=== PATIENT | female | born 1945 | race Caucasian/White ===

== ENCOUNTER 2019-11-22 09:20 | Outpatient (CLI) | payer MEDICARE, MEDICAID, SELFPAY ==
[2019-11-22 09:40] VITALS: BP 130/82; PULSE 109; RESP 17; TEMP 36.5; O2SAT 96
--- NOTE | 2019-11-22 10:29 | DI.RAD_ITS ---
EXAM: XR PAIN CLINIC LUMBAR SP 2V CLINICAL HISTORY: Dx: Lumbar Spondylosis, LUMBAR MEDIAL BRANCH BLOCK TECHNIQUE: Fluoroscopy was provided for the referring physician for guidance with performing injecti on procedure. COMPARISON: No exams were available for comparison FINDINGS: Please see procedure note for details. Fluoro time: 58.2 seconds RADIATION DOSE DELIVERED:
[2019-11-22 10:32] VITALS: BP 151/86; PULSE 105; RESP 22; O2SAT 96
[2019-11-22] MEDS: Bupivacaine 0.5% Pres-Free 10 ML VIAL IJ (10:33)
[2019-11-22] MEDS: Omnipaque 240 MG/ML 50 ML BTL IJ (10:33)
--- NOTE | 2019-11-22 10:38 | PDOC.PAIN ---
Pain Clinic Procedure Note Procedure Note Procedure Note: Lumbar/Sacral Medial Branch Blocks Vanna Ashby has been [facility] for lumbar/sacral medial branch blocks. COMMENTS: Previously evaluated by Ms. Elam in our clinic. DX: Lumbosacral spondylosis without myelopathy Patient was interviewed and the medical record reviewed. There were no medical, pharmacologic, radiographic or other structural contraindications to attempting fluoroscopically guided local anesthetic lumbar/sacral medial branch blocks. Risks and expected side effects as well as potential benefit of the procedure were reviewed and voiced concerns addressed. The printed consent form was signed and witnessed. Standard time-out procedure was performed. Patient was placed in the prone position on the fluoroscopy table and automated blood pressure cuff and pulse oximeter applied. The skin entry points for approaching the anatomic target points of the segmental medial branches of bilateral L3-L5DR were identified with anfluoroscopy and marked. Following thorough Chlorhexadine preparation of the skin and draping and 1% lidocaine infiltration of the skin entry points and subcutaneous tissues, a 22 gauge spinal needle was placed under fluoroscopic guidance down on to the target point for each respective segmental medial branch.Position was confirmed in A/P, oblique and lateral views with 0.25ml of omnipaque 240. At this point 0.5ml of 0.5% Bupivacaine was injected at each segmental nerve. The needles were removed without difficulty. Vital signs were stable throughout the procedure and were as recorded in the docflowsheet by the nursing staff. Follow up plans and appointments were discussed and was instructed to keep careful note of how the usual pain was modified by these injections. Specifically was asked to keep a pain diary for the next 24 hours using a numeric pain scale of 0-10 and report these results at the follow-up visit. Post procedure instruction was given as documented in the nursing documentation and having met discharge criteria. Patient was discharged from the [facility]. Based on the medial branches blocked today, if the patient has adequate relief and we are able to proceed to radiofrequency ablation, the treatment should result in the denervation of the bilateral L4-L5 and L5-S1 FACET JOINTS. We would expect to denervate a total of 4 facets during the radiofrequency ablation. COMMENTS: She will call back with her 1-4 hours post-procedure pain levels. Geoffrey Davalos DO, MPH [employer] [facility] [employer] [facility] - Pain Medicine CC: Estephanie Stern
== END 2019-11-22 09:40 ==
PROVIDERS: PCP Nurse Practitioner Family; Visit Provider Preventive Medicine Occupational Medicine
DX: M47.817 Spondylosis without myelopathy or radiculopathy, lumbosacral region (principal)
CPT/HCPCS: 64493; 64494; 72100; Q9967

== ENCOUNTER 2019-11-29 07:45 | Outpatient (CLI) | payer MEDICARE, MEDICAID, SELFPAY ==
--- NOTE | 2019-11-29 06:00 | DI.RAD_ITS ---
EXAM: XR PAIN CLINIC LUMBAR SP 2V CLINICAL HISTORY: Dx: Lumbar Spondylosis TECHNIQUE: 2D and realtime digital imaging was performed. Fluoroscopy was provided in the OR COMPARISON: No exams were available for comparison FINDINGS: C-arm fluoroscopy was utilized by Dr. Davalos during lumbar facet or transforaminal injections. Hard co py show needle placement and injections bilaterally at what appears to be 4 5 and L5-S1 levels. Fluoro time, 65.5 seconds IMPRESSION: RADIATION DOSE DELIVERED: Total DLP
[2019-11-29 07:55] VITALS: BP 125/81; PULSE 90; RESP 16; TEMP 36.9; O2SAT 96
[2019-11-29] MEDS: Lidocaine 2% Pres-Free 5 ML VIAL IJ (08:43)
[2019-11-29] MEDS: Omnipaque 240 MG/ML 50 ML BTL IJ (08:44)
--- NOTE | 2019-11-29 08:47 | PDOC.PAIN ---
Pain Clinic Procedure Note Procedure Note Procedure Note: Lumbar/Sacral Medial Branch Blocks Vanna Ashby has been referred to the [facility] for lumbar/sacral medial branch blocks. COMMENTS: She did very well with LMBB #1 DX: Lumbosacral spondylosis without myelopathy Patient was interviewed and the medical record reviewed. There were no medical, pharmacologic, radiographic or other structural contraindications to attempting fluoroscopically guided local anesthetic lumbar/sacral medial branch blocks. Risks and expected side effects as well as potential benefit of the procedure were reviewed and voiced concerns addressed. The printed consent form was signed and witnessed. Standard time-out procedure was performed. Patient was placed in the prone position on the fluoroscopy table and automated blood pressure cuff and pulse oximeter applied. The skin entry points for approaching the anatomic target points of the segmental medial branches of bilateral L3-L5DR were identified with fluoroscopy and marked. Following thorough Chlorhexadine preparation of the skin and draping and 1% lidocaine infiltration of the skin entry points and subcutaneous tissues, a 22 gauge 5 spinal needle was placed under fluoroscopic guidance down on to the target point for each respective segmental medial branch.Position was confirmed in A/P, oblique and lateral views with 0.25ml of omnipaque 240. At this point I injected 0.5 cc of 2% Lidocaine at each segmental sensory nerve. Vital signs were stable throughout the procedure and were as recorded in the docflowsheet by the nursing staff. Follow up plans and appointments were discussed and was instructed to keep careful note of how the usual pain was modified by these injections. Specifically was asked to keep a pain diary for the next 24 hours using a numeric pain scale of 0-10 and report these results at the follow-up visit. Post procedure instruction was given as documented in the nursing documentation and having met discharge criteria. Patient was discharged from the [facility]. Based on the medial branches blocked today, if the patient has adequate relief and we are able to proceed to radiofrequency ablation, the treatment should result in the denervation of the bilateral L4-L5 and L5-S1 FACET JOINTS. We would expect to denervate a total of 4 facets during the radiofrequency ablation. COMMENTS: She will call back with her 1-4 hour post-procedure pain scores. CC: Estephanie Stern
[2019-11-29 08:56] VITALS: BP 155/77; PULSE 88; RESP 19; O2SAT 96
== END 2019-11-29 08:05 ==
PROVIDERS: PCP Nurse Practitioner Family; Visit Provider Preventive Medicine Occupational Medicine
DX: M47.817 Spondylosis without myelopathy or radiculopathy, lumbosacral region (principal)
CPT/HCPCS: 64493; 64494; 72100; Q9967

== ENCOUNTER 2019-12-18 12:39 | Outpatient (CLI) | payer MEDICARE, MEDICAID, SELFPAY ==
[2019-12-18 12:49] VITALS: BP 122/65; PULSE 73; RESP 16; TEMP 37.3; O2SAT 97
[2019-12-18] MEDS: Lactated Ringers 1,000 ML 80 ML IV (13:27)
[2019-12-18] MEDS: fentaNYL 100 MCG/2 ML VIAL IVP (13:40)
[2019-12-18] MEDS: Midazolam 2 MG/2 ML VIAL IVP (13:40)
[2019-12-18] MEDS: Lidocaine 1% Pres-Free 30 ML VIAL IJ (14:09)
[2019-12-18] MEDS: Bupivacaine 0.5% Pres-Free 10 ML VIAL IJ (14:10)
[2019-12-18] MEDS: Lidocaine 2% Pres-Free 5 ML VIAL (14:11)
[2019-12-18 14:14] VITALS: BP 161/84; PULSE 81; RESP 17; O2SAT 97
--- NOTE | 2019-12-18 14:18 | DI.RAD_ITS ---
EXAM: XR PAIN CLINIC LUMBAR SP 2V CLINICAL HISTORY: dx: LUMBAR SPONDYLOSIS TECHNIQUE: C-arm fluoroscopy was utilized by Dr. Arcos during reported radiofrequency ablation. COMPARISON: No exams were available for comparison FINDINGS: Hard copies show needle placement bilaterally adjacent to the pedicles of what appear to be L4, L5, a nd S1. Fluoro time, 58.9 seconds RADIATION DOSE DELIVERED: Total DLP Total DLP Total DLP Total DLP
--- NOTE | 2019-12-18 14:18 | PDOC.PAIN ---
Pain Clinic Procedure Note Procedure Note Procedure Note: BILATERAL Lumbar Radiofrequency with Coolief Machine PROCEDURE NOTE Date of Service: December 18, 2019 Patient: Vanna Ashby Provider: JUDY ASNDERS MD Pre Operative Diagnosis: lumbar spondylosis Post Operative Diagnosis: same as above PROCEDURE: Radiofrequency Ablation of medial branches - bilateral L3, L4, L5-DR Vanna Ashby was brought into the fluoroscopy suite and positioned into the prone position on the fluoroscopy table and allowed to adjust to a position of comfort. A grounding pad was placed on the left abdomen. The lumbar region was widely prepped with a chloraprep solution, allowed to air dry and draped in standard sterile surgical fashion. Local anesthesia was provided by 20 mL of 1% Lidocaine delivered with a 25g needle. A 17g 75mm radiofrequency introducer needle was placed to the planned anatomic targets guided with intermittent fluoroscopy with a perpendicular approach to terminally place at the junction of the superior articular process and the transverse process of the bilateral L3, bilateral L4 and the base of the sacral ala on the bilateral for the L5 medial branch nerve. The stylets were removed and radiofrequency probes with a 4mm active tip were then inserted. Needle tip position of the probes was verified in the AP, oblique, and lateral views. At each site, the medial branch nerve was stimulated at 2 Hz to a maximum 1-2 volts determined to finalize safe needle and electrode placement. The patient was awake and responsive during this portion of the procedure. Each target was anesthetized with 1mL of 2% Lidocaine for anesthesia for lesioning and then each target was lesioned at 80 degrees Celsius for 2 minutes and 30 seconds. Tissue impedences were noted to be between 250 and 500 Ohms. Electrodes and needles were then removed and bandages placed over the needle placement sites, the patient then returned to the supine position on a stretcher and transported to the recovery room without hemodynamic, neurologic, or allergic reactions. Fluoroscopic images were printed for hard copy recording and digitally archived. POST PROCEDURE EVALUATION: IMPRESSION: 1. Summary of procedure. patient tolerated procedure well. excellent myotomal stimulation of the bilateral lumbar multifus muscle 2. Received 1mg of IV versed and 25mcg of IV Fentanyl Follow up plans and appointments were discussed with the Vanna . Post procedure instruction was given as documented in nursing documentation and having met discharge criteria, Vanna was discharged from the [facility]. COMMENTS: No complications. F/U with our office as needed. I personally performed this entire procedure. Judy Sanders MD Attending Physician
== END 2019-12-18 12:59 ==
PROVIDERS: PCP Nurse Practitioner Family; Visit Provider Internal Medicine
DX: M47.816 Spondylosis without myelopathy or radiculopathy, lumbar region (principal)
CPT/HCPCS: 64635; 64636; 72100; J2250; J3010

== ENCOUNTER 2020-03-11 08:03 | Outpatient (CLI) | payer MEDICARE, MEDICAID, SELFPAY ==
--- NOTE | 2020-03-11 06:00 | DI.RAD_ITS ---
EXAM: XR PAIN CLINIC LUMBAR SP 2V CLINICAL HISTORY: DX: Lumbar Radiculopathy TECHNIQUE: 2D and realtime digital imaging was performed. COMPARISON: No exams were available for comparison FINDINGS: C-arm fluoroscopy was utilized by Dr. Davalos during apparent lumbar epidural injection. Hard copy show s injection in midline at the L5-S1. Fluoro time, 13.2 seconds. IMPRESSION: RADIATION DOSE DELIVERED: Total DLP
[2020-03-11 08:29] VITALS: BP 132/68; PULSE 92; RESP 18; TEMP 37.1; O2SAT 97
[2020-03-11] MEDS: Omnipaque 240 MG/ML 50 ML BTL IJ (09:01)
[2020-03-11] MEDS: methylPREDNISolone ACETATE 40 MG/ML VIAL (09:02)
--- NOTE | 2020-03-11 09:04 | PDOC.PAIN ---
Pain Clinic Procedure Note Procedure Note Procedure Note: Lumbar Epidural Steroid Injection Procedure Note COMMENTS: I did review Ms. Elam's note from February 2020. I also reviewed her most recent imaging. She had RFA with continued pain to the legs. Patient is a diabetic with a blood sugar in the 180s this morning. I did keep the depomedrol at 40 mg for her case. DX: Lumbosacral radiculopathy Vanna Ashby has been referred to the [facility] for lumbar epidural steroid injection. The patient was greeted by the nurse who verified patients name and . Patient was then taken to the fluoroscopy suite. The patient was interviewed and the medial record reviewed. There were no medical, pharmacologic, radiographic, or other structural contraindications to attempting fluoroscopically guided lumbar epidural steroid injection. Risks and expected side effects as well as potential benefits of the procedure were reviewed and voiced concerns expressed. The patient consent form was signed and witnessed. Standard patient time-out procedure was performed. The patient was placed in the prone position on the fluoroscopy table and automated blood pressure cuff and pulse oximeter applied. The skin entry point for entering/approaching the epidural space at L5-S1 and marked. Following thorough chlorhexadine preparation of the skin and draping and 1% lidocaine infiltration of the skin entry point and subcutaneous tissues, a 18 gauge Touhy needle was placed under fluoroscopic guidance and with loss of resistance technique into the epidural space. Needle tip placement and depth were aided and confirmed by fluoroscopy. There was no paresthesia or return of blood or CSF through the needle. 1 cc's of Omnipaque 240 was injected with clear epidural spread confirmed with fluoroscopy. 40 mg depomedrol was injected. There was not any unusual discomfort expressed by Vanna Ashby. Patient's vital signs were stable throughout the procedure and were as recorded in nursing records. Follow up plans and appointments were discussed with patient. Post procedure instruction was given as documented in nursing records and having met discharge criteria and was discharged from the [facility]. COMMENTS: If this procedure is helpful, it can be completed up to 3 times per 12 months.
[2020-03-11 09:11] VITALS: BP 164/93; PULSE 90; RESP 16; O2SAT 98
== END 2020-03-11 08:23 ==
PROVIDERS: PCP Nurse Practitioner Family; Visit Provider Preventive Medicine Occupational Medicine
DX: M54.17 Radiculopathy, lumbosacral region (principal)
CPT/HCPCS: 62323; 72100; J1030; Q9967